=== PATIENT | male | born 1985 | race Caucasian/White ===

== ENCOUNTER 2019-11-24 09:57 | Emergency (ER) | payer OTHER ==
[~2019-11-24] VITALS: Ht 172.7 cm; Wt 72.6 kg
[2019-11-24 12:15] VITALS: BP 115/80
== END 2019-11-24 12:44 | disposition home or self-care (01) ==
LOC: ER 09:57
DX: J06.9 Acute upper respiratory infection, unspecified (principal)
CPT/HCPCS: 99281